=== PATIENT | male | born 1940 | race Asian ===

== ENCOUNTER 2017-10-22 18:14 | Inpatient (IN) | payer MEDICAID ==
[~2017-10-22] VITALS: Ht 172.7 cm; Wt 74.6 kg
--- NOTE | 2017-10-22 19:08 | Emergency Room Report ---
History of Present Illness General Chief Complaint: Dyspnea/Respdistress Source: EMS Present Illness HPI 77-year-old male, history of lung cancer, stage IV, DNR/DNI, as confirmed by both patient and his sister, presenting with shortness of breath. Has been short of breath for the last 2 days coming from long term. Also patient has edema bilateral extremities and hands all the time. Denies any current chest pain per EMS, pt hypoxic on NC at 85. up to 95 on NRB Allergies: Coded Allergies: ALCOHOL (Verified Allergy, Unknown, 10/22/17) Coffee (Verified Allergy, Unknown, 10/22/17) Patient History Past Medical History: see triage record Past Surgical History: none Pertinent Family History: none Reviewed Nursing Documentation: PMH: Agreed, PSxH: Agreed Nursing Documentation-PMH Hx Hypertension: Yes Hx COPD: Yes Hx Cancer: Yes - LUNG CA Review of Systems All Other Systems: negative except mentioned in HPI Physical Exam Vital Signs Date Time Temp Pulse Resp B/P (MAP) Pulse Ox O2 Delivery O2 Flow Rate FiO2 10/22/17 18:29 97.1 86 20 143/80 97 Non-Rebreather 15.0 97.2 Sp02 EP Interpretation: abnormal General Appearance: alert, GCS 15, severe distress Head: normocephalic, atraumatic Eyes: bilateral eye normal inspection, bilateral eye PERRL, bilateral eye EOMI ENT: normal ENT inspection, normal pharynx, normal voice, moist mucus membranes Neck: normal inspection, full range of motion, supple Respiratory: other - Decreased breath sounds right side of the lung, tachypnea , hypoxic Cardiovascular #1: regular rate, rhythm, edema Cardiovascular #2: 2+ radial (R), 2+ radial (L) Gastrointestinal: normal inspection, non tender, soft, non-distended, no guarding Genitourinary: no CVA tenderness Musculoskeletal: normal inspection, back normal, normal range of motion, non- tender Neurologic: normal inspection, alert, oriented x3, responsive, motor strength/ tone normal, sensory intact, normal gait, speech normal Psychiatric: normal inspection, judgement/insight normal, memory normal Skin: normal inspection, normal color, no rash, warm/dry, well hydrated, normal turgor Procedures Critical Care Time Critical Care Time 40 minutes of CC time 77-year-old male, DNR/DNI, lung cancer, presenting with shortness of breath VS: Hypoxic and tachypneic PLAN: IV access, labs, lactate, troponin, Blood/Urine Cx, Abx, IVF, BiPAP Anticipate admission to [facility] vs. [facility] CC time also includes review of labs, review of EMR, discussion with family and paperwork from SNF, d/w hospitalist CC could include dosing of pressors, additional Abx CC time does not include procedures Medical Decision Making Diagnostic Impression: Primary Impression: Respiratory distress Additional Impressions: Lung cancer HCAP (healthcare-associated pneumonia) ER Course 77-year-old male with shortness of breath, DNR/DNI DDX: ACS vs. CHF vs. pneumonia vs. influenza, a progression of lung cancer PE on differential however at this time there are other more likely diagnoses. Plan: IV access, obtain labs including troponin, EKG, CXR CONSIDER BIPAP ANTICIPATE ADMISSION ER course: Patient placed on BiPAP for respiratory distress leukocytosis - given broad spec abx Disposition: Patient requires admission to [facility] D/W hospitalist Dr Odell Please note that this Emergency Department Report was dictated using K[employer]ferport[employer] room inspector technology software, occasionally this can lead to erroneous entry secondary to interpretation by the dictation equipment. EKG Diagnostic Results* EP Interpretation: Yes Rate: normal Rhythm: NSR ST Segments: No acute changes ASA given to patient: No Rhythm Strip EP Interpretation: Yes Rate: 89 Rhythm: NSR, no PVCs, no ectopy Chest X-ray CXR: Ordered: Yes 1 view Indication: Chest pain EP interpretation: Yes Interpretation: Bilateral interstitial infiltrate Impression: Bilateral interstitial infiltrate Electronically signed by Brooks Montaño MD Laboratory Tests Test 10/22/17 19:05 White Blood Count 19.0 K/UL (4.8-10.8) H Red Blood Count 4.44 M/UL (4.70-6.10) L Hemoglobin 12.2 G/DL (14.2-18.0) L Hematocrit 39.2 % (42.0-52.0) L Mean Corpuscular Volume 88 FL (80-99) Mean Corpuscular Hemoglobin 27.4 PG (27.0-31.0) Mean Corpuscular Hemoglobin Concent 31.0 G/DL (32.0-36.0) L Red Cell Distribution Width 14.9 % (11.6-14.8) H Platelet Count 341 K/UL (150-450) Mean Platelet Volume 6.9 FL (6.5-10.1) Neutrophils (%) (Auto) % (45.0-75.0) Lymphocytes (%) (Auto) % (20.0-45.0) Monocytes (%) (Auto) % (1.0-10.0) Eosinophils (%) (Auto) % (0.0-3.0) Basophils (%) (Auto) % (0.0-2.0) Differential Total Cells Counted 100 Neutrophils % (Manual) 92 % (45-75) H Lymphocytes % (Manual) 3 % (20-45) L Monocytes % (Manual) 4 % (1-10) Eosinophils % (Manual) 0 % (0-3) Basophils % (Manual) 0 % (0-2) Band Neutrophils 1 % (0-8) Platelet Estimate Adequate Platelet Morphology Normal Hypochromasia 1+ Anisocytosis 1+ Sodium Level 145 MMOL/L (136-145) Potassium Level 2.4 MMOL/L (3.5-5.1) *L Chloride Level 91 MMOL/L (98-107) L Carbon Dioxide Level > 45 MMOL/L (21-32) *H Blood Urea Nitrogen 21 mg/dL (7-18) H Creatinine 0.8 MG/DL (0.55-1.30) Estimate Glomerular Filtration Rate mL/min (>60) Glucose Level 110 MG/DL (74-106) H Lactic Acid Level 1.10 mmol/L (0.66-2.22) Calcium Level 9.8 MG/DL (8.5-10.1) Total Bilirubin 0.5 MG/DL (0.2-1.0) Aspartate Amino Transferase (AST) 28 U/L (15-37) Alanine Aminotransferase (ALT) 30 U/L (12-78) Alkaline Phosphatase 64 U/L (46-116) Troponin I 0.022 ng/mL (0.000-0.056) Pro-B-Type Natriuretic Peptide 299 pg/mL (0-125) H Total Protein 6.8 G/DL (6.4-8.2) Albumin 2.6 G/DL (3.4-5.0) L Globulin 4.2 g/dL Albumin/Globulin Ratio 0.6 (1.0-2.7) L Microbiology Date/Time Source Procedure Growth Status 3/5/18 19:35 Nasal Nares Influenza Types A,B Antigen (TINO) - Final Complete Last Vital Signs Date Time Temp Pulse Resp B/P (MAP) Pulse Ox O2 Delivery O2 Flow Rate FiO2 10/22/17 18:29 97.1 86 20 143/80 97 Non-Rebreather 15.0 97.2 Disposition: ADMITTED INPATIENT Condition: Serious RetinBrooks oliveros M.D. Oct 22, 2017 19:08
[2017-10-22 19:26] LABS: HEMATOCRIT 39.2 % (42.0-52.0); HEMOGLOBIN 12.2 G/DL (14.2-18.0); MEAN CORPUSCULAR VOLUME 88 FL (80-99); PLATELET COUNT 341 K/UL (150-450); RED BLOOD COUNT 4.44 M/UL (4.70-6.10); RED CELL DISTRIBUTION WIDTH 14.9 % (11.6-14.8)
[2017-10-22 19:30] VITALS: BP 143/80
[2017-10-22] MEDS ORDERED: Cefepime 2gm ONE (19:43)
[2017-10-22] MEDS ORDERED: Morphine Sulfate 4mg/ml Inj IVP ONE (19:45)
[2017-10-22] MEDS ORDERED: Vancomycin 1 GM in NS 275 ML IVPB ONE (19:45)
[2017-10-22] MEDS ORDERED: Cefepime HCl 2 GM in NS 110 ML IV ONE (19:45)
[2017-10-22 20:09] LABS: ALANINE AMINOTRANSFERASE 30 U/L (12-78); ALBUMIN 2.6 G/DL (3.4-5.0); ALBUMIN/GLOBULIN RATIO 0.6 (1.0-2.7); ALKALINE PHOSPHATASE 64 U/L (46-116); ASPARTATE AMINO TRANSFERASE 28 U/L (15-37); BILIRUBIN,TOTAL 0.5 MG/DL (0.2-1.0); BLOOD UREA NITROGEN 21 mg/dL (7-18); CALCIUM 9.8 MG/DL (8.5-10.1); CHLORIDE 91 MMOL/L (98-107); CREATININE 0.8 MG/DL (0.55-1.30); SODIUM 145 MMOL/L (136-145)
[2017-10-22 20:10] LABS: POTASSIUM 2.4 MMOL/L (3.5-5.1)
[2017-10-22 20:12] LABS: CARBON DIOXIDE > 45 MMOL/L (21-32)
[2017-10-22] MEDS ORDERED: Mylanta II UD 30ml ORAL PRN (21:00)
[2017-10-22] MEDS ORDERED: Cefepime HCl 1 GM in D5W 55 ML IV SCH (21:00)
[2017-10-22] MEDS ORDERED: Albuterol/Ipratropium 3ml neb HHN PRN (21:00)
[2017-10-22] MEDS ORDERED: Nitroglycerin Subl 0.4mg tab SL PRN (21:00)
[2017-10-22] MEDS ORDERED: Miralax 17gm pkt ORAL PRN (21:00)
[2017-10-22] MEDS ORDERED: Promethazine/Codeine 5ml UD ORAL PRN (21:00)
[2017-10-22] MEDS ORDERED: ASPIRIN325 MG RECTAL (21:10)
[2017-10-22] MEDS ORDERED: DEXTROSE 40% IV (21:10)
[2017-10-22] MEDS ORDERED: BISACODYL5 MG RECTAL (21:10)
[2017-10-22] MEDS ORDERED: BREO ELLIPTA 11 EACH IH (21:10)
[2017-10-22] MEDS ORDERED: ASPIRIN81 MG ORAL (21:10)
[2017-10-22] MEDS ORDERED: ACID CONTROLLER20 MG ORAL (21:10)
[2017-10-22] MEDS ORDERED: ATORVASTATIN CA40 MG ORAL (21:10)
[2017-10-22] MEDS ORDERED: ACETYLCYST200 MG/1 M HHN (21:10)
[2017-10-22] MEDS ORDERED: FUROSEMIDE40 MG ORAL (21:10)
[2017-10-22] MEDS ORDERED: CARDIZEM30 M1 PO (21:10)
[2017-10-22] MEDS ORDERED: ACETAMINOPHEN325 M1 ORAL (21:10)
[2017-10-22] MEDS ORDERED: POLYETHYLENE GLY1 G1 ORAL (21:16)
[2017-10-22] MEDS ORDERED: GLUCAGON EMERGEN1 MG IJ (21:16)
[2017-10-22] MEDS ORDERED: HUMALOG100 UNIT/4 SUBQ (21:16)
[2017-10-22] MEDS ORDERED: IPRAT-ALBUT 0.5-3 ML IH (21:16)
[2017-10-22] MEDS ORDERED: LOSARTAN POTASS50 MG ORAL (21:16)
[2017-10-22] MEDS ORDERED: HEPARIN SO5000 UNIT2 SUBQ (21:16)
[2017-10-22] MEDS ORDERED: NORCO 10-325 T1 EACH ORAL (21:25)
[2017-10-22] MEDS ORDERED: PREDNISONE10 MG ORAL (21:25)
[2017-10-22] MEDS ORDERED: TEMAZEPAM7.5 MG ORAL (21:25)
[2017-10-22] MEDS ORDERED: SENNOSIDES-DOC1 EACH ORAL (21:25)
[2017-10-22 21:30] VITALS: BP 149/70
[2017-10-22] MEDS ORDERED: Vancomycin 1gm inj IVPB ONE (22:29)
[2017-10-22 22:55] VITALS: BP 145/67
[2017-10-22 23:06] LABS: APPEARANCE,URINE CLEAR; BILIRUBIN, URINE NEGATIVE (NEGATIVE); GLUCOSE, URINE (UA) NEGATIVE (NEGATIVE); KETONES,URINE 1+ (NEGATIVE); LEUKOCYTE ESTERASE ,URINE 1+ (NEGATIVE); NITRITE,URINE NEGATIVE (NEGATIVE); PH,URINE 6 (4.5-8.0); PROTEIN,URINE 2+ (NEGATIVE); UROBILINOGEN,URINE NORMAL MG/DL (0.0-1.0)
[2017-10-22 23:08] LABS: COLOR,URINE YELLOW
[2017-10-22 23:30] VITALS: BP 150/84
[2017-10-23] MEDS: Heparin 5000 units/ml inj SUBQ SCH ×3 (00:33→20:26)
[2017-10-23] MEDS ORDERED: TEMAZEPAM7.5 MG ORAL (01:53)
[2017-10-23] MEDS ORDERED: CARDIZEM30 M1 PO (01:53)
[2017-10-23] MEDS ORDERED: ASPIRIN300 MG RECTAL (01:53)
[2017-10-23 04:00] VITALS: BP 150/74
[2017-10-23 06:24] LABS: HEMOGLOBIN 11.4 G/DL (14.2-18.0); MEAN CORPUSCULAR VOLUME 89 FL (80-99); PLATELET COUNT 300 K/UL (150-450); RED BLOOD COUNT 4.04 M/UL (4.70-6.10); RED CELL DISTRIBUTION WIDTH 15.2 % (11.6-14.8); WHITE BLOOD COUNT 18.8 K/UL (4.8-10.8)
[2017-10-23 06:57] LABS: ALANINE AMINOTRANSFERASE 31 U/L (12-78); ALBUMIN 2.4 G/DL (3.4-5.0); ALBUMIN/GLOBULIN RATIO 0.7 (1.0-2.7); ALKALINE PHOSPHATASE 65 U/L (46-116); ASPARTATE AMINO TRANSFERASE 31 U/L (15-37); BILIRUBIN,TOTAL 0.6 MG/DL (0.2-1.0); BLOOD UREA NITROGEN 19 mg/dL (7-18); CALCIUM 9.4 MG/DL (8.5-10.1); CHLORIDE 96 MMOL/L (98-107); CREATININE 0.7 MG/DL (0.55-1.30); PHOSPHORUS 3.7 MG/DL (2.5-4.9); POTASSIUM 2.8 MMOL/L (3.5-5.1); SODIUM 147 MMOL/L (136-145)
[2017-10-23 07:01] LABS: CARBON DIOXIDE > 45 MMOL/L (21-32)
--- NOTE | 2017-10-23 07:24 | History and Physical ---
History of Present Illness General Date patient seen: Oct 23, 2017 Reason for Hospitalization: Dyspnea/Respdistress Present Illness HPI 77-year-old male, history of lung cancer, stage IV, DNR/DNI, residing in a [facility] presented to ER with shortness of breath. the last 2 days Also patient has edema bilateral extremities and hands all the time. Denies any current chest pain, pt was hypoxic was on NC at 85. up to 95 on NRB. Pt was in respiratory failure in ER and was put on BIPAP and transferred to [facility]. Allergies: Coded Allergies: ALCOHOL (Verified Allergy, Unknown, 10/22/17) Coffee (Verified Allergy, Unknown, 10/22/17) Medication History Scheduled Aspirin* (Aspirin*), 81 MG ORAL DAILY, (Reported) Atorvastatin Calcium* (Atorvastatin Calcium*), 40 MG ORAL BEDTIME, (Reported) Bisacodyl* (Dulcolax*), 10 MG RECTAL DAILY, (Reported) Famotidine (Acid Controller), 20 MG ORAL TWICE A DAY, (Reported) Fluticasone/Vilanterol (Breo Ellipta 100-25 Mcg INH), 1 EACH IH DAILY, (Reported ) Furosemide* (Lasix*), 40 MG ORAL DAILY, (Reported) Glucagon,Human Recombinant (Glucagon Emergency Kit), 1 MG IJ NEEDED, ( Reported) Heparin Sod (Porcine) (Heparin Sodium*), 5,000 UNITS SUBQ EVERY 8 HOURS, ( Reported) Ipratropium/Albuterol Sulfate (Iprat-Albut 0.5-3(2.5) Mg/3 Ml), 3 ML IH EVERY 2 HOURS, (Reported) Losartan Potassium* (Losartan Potassium*), 50 MG ORAL DAILY, (Reported) Polyethylene Glycol 3350 (Polyethylene Glycol 3350), 17 GM ORAL DAILY, (Reported ) Prednisone* (Prednisone*), 10 MG ORAL DAILY, (Reported) Sennosides-Docusate Sodium* (Sennosides-Docusate Sodium*), 1 TAB ORAL BID, ( Reported) Scheduled PRN Acetaminophen* (Acetaminophen 325MG Tablet*), 650 MG ORAL Q4H PRN for For Pain, (Reported) Acetylcysteine* (Acetylcysteine*), 200 MG HHN Q4HR PRN for For Cough, (Reported) Aspirin (Aspirin), 300 MG RECTAL DAILY PRN for For Pain, (Reported) Diltiazem Hcl* (Cardizem*), 30 MG PO QID PRN for For High Blood Pressure, ( Reported) Hydrocodone Bit/Acetaminophen 10-325* ([place] 10-325*), 1 TAB ORAL Q4H PRN for For Pain, (Reported) Temazepam (Temazepam*), 7.5 MG ORAL BEDTIME PRN for Insomnia, (Reported) Miscellaneous Medications Dextrose 40 % In Water (Dextrose 40%-Water Iv Soln), 12.5 GM IV, (Reported) Insulin Lispro (Humalog), 0 SUBQ, (Reported) Patient History Healthcare decision maker Resuscitation status Do Not Intubate Advanced Directive on File Yes Past Medical/Surgical History Past Medical/Surgical History: (1) Lung cancer Review of Systems All Other Systems: negative except mentioned in HPI Physical Exam General Appearance: cachetic Lines, tubes and drains: peripheral HEENT: normocephalic, atraumatic Neck: non-tender, normal alignment Respiratory/Chest: chest wall non-tender, lungs clear Breasts: no masses Cardiovascular/Chest: normal peripheral pulses, normal rate Abdomen: normal bowel sounds Genitourinary/Rectal: normal genital exam, normal rectal exam Extremities: normal range of motion, normal inspection, pitting - left arm Skin Exam: normal pigmentation Last 24 Hour Vital Signs Date Time Temp Pulse Resp B/P (MAP) Pulse Ox O2 Delivery O2 Flow Rate FiO2 10/23/17 04:35 89 16 100 Full Face 60 10/23/17 04:00 60 10/23/17 04:00 89 10/23/17 04:00 97.9 90 22 150/74 100 Bi-pap 60 97.9 10/23/17 03:20 75 16 100 Full Face 60 10/23/17 01:30 75 16 100 Full Face 60 10/23/17 00:00 100 10/22/17 23:30 79 18 100 Full Face 100 10/22/17 23:30 97.4 84 20 150/84 100 Bi-pap 100 97.4 10/22/17 23:20 97.1 82 17 145/67 100 Bi-pap 15.0 100 206.8 10/22/17 23:20 97.1 10/22/17 22:55 82 17 145/67 100 Bi-pap 100 3/5/18 21:30 84 22 149/70 100 Bi-pap 100 10/22/17 21:00 83 18 100 Full Face 100 10/22/17 19:52 97.1 10/22/17 19:30 81 18 Bi-pap 15.0 100 10/22/17 19:30 97.2 86 18 143/80 100 Non-Rebreather 15.0 100 97.2 10/22/17 19:17 81 18 Bi-pap 100 10/22/17 19:15 81 18 100 Full Face 100 10/22/17 18:29 97.1 86 20 143/80 97 Non-Rebreather 15.0 97.2 Intake and Output 10/22/17 10/23/17 19:00 07:00 Intake Total 485.0 ml Output Total 700 ml Balance -215.0 ml Intake Oral 0 ml IV Total 485.0 ml Output Urine Total 700 ml Laboratory Tests Test 10/22/17 19:05 10/22/17 20:14 10/22/17 22:50 10/23/17 05:20 White Blood Count 19.0 K/UL (4.8-10.8) H 18.8 K/UL (4.8-10.8) H Red Blood Count 4.44 M/UL (4.70-6.10) L 4.04 M/UL (4.70-6.10) L Hemoglobin 12.2 G/DL (14.2-18.0) L 11.4 G/DL (14.2-18.0) L Hematocrit 39.2 % (42.0-52.0) L 36.0 % (42.0-52.0) L Mean Corpuscular Volume 88 FL (80-99) 89 FL (80-99) Mean Corpuscular Hemoglobin 27.4 PG (27.0-31.0) 28.3 PG (27.0-31.0) Mean Corpuscular Hemoglobin Concent 31.0 G/DL (32.0-36.0) L 31.7 G/DL (32.0-36.0) L Red Cell Distribution Width 14.9 % (11.6-14.8) H 15.2 % (11.6-14.8) H Platelet Count 341 K/UL (150-450) 300 K/UL (150-450) Mean Platelet Volume 6.9 FL (6.5-10.1) 7.1 FL (6.5-10.1) Neutrophils (%) (Auto) % (45.0-75.0) % (45.0-75.0) Lymphocytes (%) (Auto) % (20.0-45.0) % (20.0-45.0) Monocytes (%) (Auto) % (1.0-10.0) % (1.0-10.0) Eosinophils (%) (Auto) % (0.0-3.0) % (0.0-3.0) Basophils (%) (Auto) % (0.0-2.0) % (0.0-2.0) Differential Total Cells Counted 100 Neutrophils % (Manual) 92 % (45-75) H Pending Lymphocytes % (Manual) 3 % (20-45) L Pending Monocytes % (Manual) 4 % (1-10) Eosinophils % (Manual) 0 % (0-3) Basophils % (Manual) 0 % (0-2) Band Neutrophils 1 % (0-8) Platelet Estimate Adequate Pending Platelet Morphology Normal Pending Hypochromasia 1+ Anisocytosis 1+ Sodium Level 145 MMOL/L (136-145) 147 MMOL/L (136-145) H Potassium Level 2.4 MMOL/L (3.5-5.1) *L 2.8 MMOL/L (3.5-5.1) L Chloride Level 91 MMOL/L (98-107) L 96 MMOL/L (98-107) L Carbon Dioxide Level > 45 MMOL/L (21-32) *H > 45 MMOL/L (21-32) *H Blood Urea Nitrogen 21 mg/dL (7-18) H 19 mg/dL (7-18) H Creatinine 0.8 MG/DL (0.55-1.30) 0.7 MG/DL (0.55-1.30) Estimat Glomerular Filtration Rate mL/min (>60) mL/min (>60) Glucose Level 110 MG/DL (74-106) H 93 MG/DL (74-106) Lactic Acid Level 1.10 mmol/L (0.66-2.22) Calcium Level 9.8 MG/DL (8.5-10.1) 9.4 MG/DL (8.5-10.1) Total Bilirubin 0.5 MG/DL (0.2-1.0) 0.6 MG/DL (0.2-1.0) Aspartate Amino Transf (AST/SGOT) 28 U/L (15-37) 31 U/L (15-37) Alanine Aminotransferase (ALT/SGPT) 30 U/L (12-78) 31 U/L (12-78) Alkaline Phosphatase 64 U/L (46-116) 65 U/L (46-116) Troponin I 0.022 ng/mL (0.000-0.056) Pro-B-Type Natriuretic Peptide 299 pg/mL (0-125) H 290 pg/mL (0-125) H Total Protein 6.8 G/DL (6.4-8.2) 5.8 G/DL (6.4-8.2) L Albumin 2.6 G/DL (3.4-5.0) L 2.4 G/DL (3.4-5.0) L Globulin 4.2 g/dL 3.4 g/dL Albumin/Globulin Ratio 0.6 (1.0-2.7) L 0.7 (1.0-2.7) L Arterial Blood pH 7.371 (7.350-7.450) Arterial Blood Partial Pressure CO2 100.9 mmHg (35.0-45.0) *H Arterial Blood Partial Pressure O2 283.9 mmHg (75.0-100.0) H Arterial Blood HCO3 57.1 mmol/L (22.0-26.0) H Arterial Blood Oxygen Saturation 99.2 % (92.0-98.0) H Arterial Blood Base Excess 26.5 Kyler Test Positive Urine Color Yellow Urine Appearance Clear Urine pH 6 (4.5-8.0) Urine Specific [place] 1.015 (1.005-1.035) Urine Protein 2+ (NEGATIVE) H Urine Glucose (UA) Negative (NEGATIVE) Urine Ketones 1+ (NEGATIVE) H Urine Occult Blood Negative (NEGATIVE) Urine Nitrite Negative (NEGATIVE) Urine Bilirubin Negative (NEGATIVE) Urine Urobilinogen Normal MG/DL (0.0-1.0) Urine Leukocyte Esterase 1+ (NEGATIVE) H Urine RBC 0-2 /HPF (0 - 0) H Urine WBC 2-4 /HPF (0 - 0) Urine Squamous Epithelial Cells None /LPF (NONE/OCC) Urine Amorphous Sediment Few /LPF (NONE) H Urine Bacteria Few /HPF (NONE) Phosphorus Level 3.7 MG/DL (2.5-4.9) Microbiology Date/Time Source Procedure Growth Status 10/22/17 19:35 Nasal Nares Influenza Types A,B Antigen (TINO) - Final Complete Height (Feet): 5 Height (Inches): 8.00 Weight (Pounds): 150 Medications Current Medications Medications (Trade) Dose Ordered Sig/Robi Route PRN Reason Start Time Stop Time Status Last Admin Dose Admin Acetaminophen (Tylenol) 650 mg Q4H PRN ORAL fever 10/22/17 21:00 11/21/17 20:59 Al Hydroxide/Mg Hydroxide (Mylanta II) 30 ml Q6H PRN ORAL dyspepsia 10/22/17 21:00 11/21/17 20:59 Albuterol/ Ipratropium (Albuterol/ Ipratropium) 3 ml EVERY 4 HOURS PRN HHN Shortness of Breath 10/22/17 21:00 10/27/17 20:59 Cefepime HCl 1 gm/ Dextrose 55 ml @ 110 mls/hr Q12H IV 10/23/17 08:00 10/30/17 07:59 Dextrose (Dextrose 50%) STAT PRN IV Hypoglycemia 10/23/17 07:00 11/22/17 06:59 Heparin Sodium (Porcine) (Heparin 5000 units/ml) 5,000 units EVERY 12 HOURS SUBQ 10/22/17 21:00 11/21/17 20:59 10/23/17 00:33 Insulin Aspart (NovoLOG) BEFORE MEALS AND HS SUBQ 10/23/17 11:30 11/22/17 11:29 Nitroglycerin (Ntg) 0.4 mg Q5MINS PRN SL Prn Chest Pain 10/22/17 21:00 11/21/17 20:59 Ondansetron HCl (Zofran) 4 mg Q6H PRN IVP Nausea & Vomiting 10/22/17 21:00 11/21/17 20:59 Polyethylene Glycol (Miralax) 17 gm DAILYPRN PRN ORAL Constipation 10/22/17 21:00 11/21/17 20:59 Promethazine HCl/ Codeine (Phenergan with Codeine) 5 ml Q4H PRN ORAL For Cough 10/22/17 21:00 11/21/17 20:59 Temazepam (Restoril) 15 mg HSPRN PRN ORAL Insomnia 10/22/17 21:00 10/29/17 20:59 Vancomycin HCl (Vanco rx to dose) 1 ea DAILY PRN MISC Per rx protocol 10/22/17 21:00 11/21/17 20:59 Vancomycin/Sodium Chloride 250 ml @ 166.667 mls/hr Q12H IVPB 10/23/17 10:30 10/28/17 10:29 Assessment/Plan Problem List: (1) Respiratory distress ICD Codes: R06.03 - Acute respiratory distress SNOMED: 698298232 (2) Pancoast syndrome ICD Codes: C34.10 - Malignant neoplasm of upper lobe, unspecified bronchus or lung SNOMED: 187526388 (3) HCAP (healthcare-associated pneumonia) ICD Codes: J18.9 - Pneumonia, unspecified organism SNOMED: 526505378 (4) Lung cancer ICD Codes: C34.90 - Malignant neoplasm of unspecified part of unspecified bronchus or lung SNOMED: 999935253 Assessment/Plan respiratory treatment IV abx trial of iv steroids chec sputum oncology evaluation. CRISTELA KEVIN Oct 23, 2017 07:23
[2017-10-23 08:00] VITALS: BP 146/85
[2017-10-23] MEDS ORDERED: dilTIAZem HCl 30mg tab ORAL PRN (08:30)
[2017-10-23] MEDS: Cefepime HCl 1 GM in D5W 55 ML IV SCH ×2 (08:45→20:23)
[2017-10-23] MEDS: Losartan 50mg tab ORAL SCH ×2 (08:56→09:00)
[2017-10-23] MEDS: Furosemide 40mg tab ORAL SCH ×2 (08:56→09:00)
[2017-10-23] MEDS: Vancomycin 750mg/NS 250ml IVPB SCH ×2 (10:22→21:30)
--- NOTE | 2017-10-23 10:38 | Diagnostic Imaging Report ---
Indication: Chest pain Comparison: None A single view chest radiograph was obtained. Findings: Patchy interstitial opacities are present within the lungs bilaterally. There is suggestion of basilar atelectasis on the left. Heart size is within normal limits accounting for low lung volumes. Surgical clips demonstrated in the upper abdomen. Bones are osteopenic. IMPRESSION: Abnormal interstitial opacities bilaterally. Consider interstitial pneumonitis versus edema. Please correlate clinically.
--- NOTE | 2017-10-23 11:21 | Diagnostic Imaging Report ---
Indication: Dyspnea Comparison: 10/22/2017 A single view chest radiograph was obtained. Findings: There is no change. Patchy interstitial densities demonstrated throughout the lungs bilaterally. Findings may be inflammatory on the basis of interstitial edema. Please correlate clinically. There is evidence of chronic lung disease with hyperlucency noted in the upper lung olivera suggestive of emphysema/COPD. There may be a right pleural effusion with blunting of the costophrenic angle and obscuring of the right hemidiaphragm. Heart is enlarged. IMPRESSION: No significant slubber frame changer the last day.
[2017-10-23] MEDS: NovoLOG Insulin Flexpen SUBQ SCH ×3 (11:30→20:30)
--- NOTE | 2017-10-23 11:31 | Consultation ---
Consult Note Consult Note ID DIC # [id number] ZACHARY WETZEL M.D. Oct 23, 2017 11:31
[2017-10-23 12:00] VITALS: BP 136/72
[2017-10-23] MEDS ORDERED: Potassium Chloride 40 MEQ in Sodium Chloride 500ML 550 ML IVPB ONE ×2 (14:00→16:30)
[2017-10-23] MEDS: Azithromycin 500 MG in D5W 275 ML IV SCH (14:12)
[2017-10-23 16:00] VITALS: BP 130/64
--- NOTE | 2017-10-23 16:27 | Cardiology Report ---
APPROVED REPORT EKG Measurement Heart [id number] NC 140P39 [id number] Normal sinus rhythm Nonspecific ST and T wave abnormality Abnormal ECG
--- NOTE | 2017-10-23 18:15 | Consultation ---
DATE OF CONSULTATION: 10/23/2017 INFECTIOUS DISEASE CONSULTATION CONSULTING PHYSICIAN: Renzo Perez M.D. REQUESTING PHYSICIAN: Varun Odell M.D. REASON FOR CONSULTATION: Evaluation of the patient for pneumonia, antibiotic management. HISTORY OF PRESENT ILLNESS: The patient is a 77-year-old male with multiple medical problems, who [facility] due to shortness of breath. The patient has been admitted with impression of pneumonia. Infectious Disease consultation has been requested for further evaluation of the patient's antibiotic management. PAST MEDICAL HISTORY: Significant for, 1. Stage IV lung cancer. 2. DNR/DNI. 3. Atrial fibrillation. 4. Hyperlipidemia. 5. Hypertension. 6. History of COPD. 7. Diabetes. MEDICATIONS: The patient is on IV vancomycin and cefepime. ALLERGIES: No history of allergies to antibiotics. FAMILY HISTORY: Not contributing. REVIEW OF SYSTEMS: HEENT: No recent change of vision or hearing. PULMONARY: Cough and shortness of breath. CARDIOVASCULAR: No chest pain or palpitation. GASTROINTESTINAL/ABDOMEN: No nausea or vomiting. GENITOURINARY: No dysuria. MUSCULOSKELETAL: The patient has left upper extremity weakness. NEUROLOGIC: Awake and alert. LABORATORY AND DIAGNOSTIC DATA: White blood cells 18, hemoglobin 11 and platelets 300. UA is unremarkable. BUN 19 and creatinine 0.7. Lactic acid is normal. ALT, AST, and alkaline phosphatase unremarkable. Influenza A/B screen negative. Chest x-ray, patchy interstitial densities demonstrated the lung. ASSESSMENT: The patient is a 77-year-old male with, 1. Possible postobstructive pneumonia. 2. Leukocytosis. 3. Sepsis. 4. Respiratory failure, on BiPAP. 5. Rule out bacteremia. PLAN: 1. We will continue the patient on vancomycin and cefepime. We will add Zithromax for atypical coverage. 2. Monitor CBC. 3. Monitor BMP. 4. Monitor chest x-ray. 5. Monitor cultures (blood, sputum). 6. Based on the patient's current labs, we will do further recommendations. Thank you, Dr. Odell, for allowing me to participate in the care of this patient. I will follow the patient with you during this hospitalization. Renzo Perez M.D. DR: MATEO JOB#: [id number] CC:
[2017-10-23 20:00] VITALS: BP 125/79
[2017-10-24] VITALS: BP 128/74
[2017-10-24 04:00] VITALS: BP 114/70
--- NOTE | 2017-10-24 05:30 | Consultation ---
DATE OF CONSULTATION: 10/23/2017 HEMATOLOGY/ONCOLOGY CONSULTATION CONSULTING PHYSICIAN: Hernandez Gibbs M.D. REQUESTING PHYSICIAN: Varun Odell M.D. REASON FOR CONSULTATION: Evaluation of lung cancer, on immunotherapy. IDENTIFICATION DATA: Dear Dr. Odell, The patient is a pleasant 77-year-old male with past medical history significant for lung cancer, this is his first time presenting here at [facility]. The patient wants to discuss in regard to immunotherapy. Hematology Service consulted. The patient is DNR, DNI, and did have a tissue biopsy in front of me to further elucidate what type of cancer he actually has. He presents to the ER with shortness of breath at all times. Denies any chest pain. No fevers, chills, or night sweats. Respiratory saw him in the ER, placed on BiPAP, transferred to the [facility], is on nasal cannula 85% to 95%. Hematology Service was consulted. PAST MEDICAL HISTORY: As noted above. ALLERGIES: Alcohol and caffeine. MEDICATIONS: Aspirin, . REVIEW OF SYSTEMS: Shortness of breath noted.CONSTITUTIONAL: No fevers or chills. SKIN: No rashes, bumps, or itching. HEENT: No headache, hearing or vision changes. BREASTS: No lumps, pain, or discharge. PULMONARY: No cough, sputum, or shortness of breath. GASTROINTESTINAL: No nausea, vomiting, or diarrhea. GENITOURINARY: No dysuria, frequency, or urgency. MUSCULOSKELETAL: No joint swelling, muscle pain, or trauma. PHYSICAL EXAMINATION: VITAL SIGNS: Reviewed. GENERAL: No acute distress. PULMONARY: Decreased breath sounds. CARDIOVASCULAR: Regular rate. No S3 or S4. ABDOMEN: Soft, nontender, and nondistended. EXTREMITIES: No cyanosis, swelling, or edema. LABORATORY DATA: WBC is 18.8, hemoglobin 11.4, hematocrit 36, and platelet count 300,000. BUN 19 and creatinine 0.7. ASSESSMENT AND RECOMMENDATIONS: 1. Stage IV lung cancer, unknown subtype. Difficult to evaluate in regard to whether or not the patient will benefit from immunotherapy. In order to do an evaluation of whether benefits are noticed with immunotherapy, first the patient will need to obtain tissue diagnosis in addition to PD, PD-L, PD-L1 staining of the tissue; approximately 10 to 20% of the patients can benefit from immunotherapy if they have a good performance status, if they have a decent performance status and some can even have long-term remission. Again, it is unknown at this time what type of tumor he actually has. We need to do further diagnosis. 2. Anemia, likely secondary to chronic disease. Closely monitor. 3. Leukocytosis, likely secondary to reactive process. Continue steroids. 4. Decreased hemoglobin and hematocrit, rule out gastrointestinal bleed. 5. Protein-calorie malnutrition, failure to thrive. I appreciate the consultation. Hernandez Gibbs M.D. DR: SEBASTIAN JOB#: [id number] CC:
[2017-10-24] MEDS: NovoLOG Insulin Flexpen SUBQ SCH ×4 (05:51→20:09)
[2017-10-24 07:01] LABS: HEMATOCRIT 37.7 % (42.0-52.0); HEMOGLOBIN 11.6 G/DL (14.2-18.0); MEAN CORPUSCULAR VOLUME 92 FL (80-99); PLATELET COUNT 314 K/UL (150-450); RED BLOOD COUNT 4.12 M/UL (4.70-6.10); RED CELL DISTRIBUTION WIDTH 15.7 % (11.6-14.8); WHITE BLOOD COUNT 21.3 K/UL (4.8-10.8)
--- NOTE | 2017-10-24 07:19 | Pulmonolgy Critical Care Note ---
Critical Care - Asmt/Plan Problems: (1) Pancoast syndrome (2) Lung cancer (3) Respiratory distress (4) HCAP (healthcare-associated pneumonia) Respiratory: monitor respiratory rate, adjust FIO2, CXR Cardiac: continue to monitor HR/BP Renal: F/U I&O Infectious Disease: check cultures, continue antibiotics Gastrointestinal: continue feedings/current rate Endocrine: monitor blood sugar, check HgA1C, continue sliding scale insulin Hematologic: transfuse if hgb<8.5 Neurologic: PRN Morphine, keep patient comfortable Affect: PRN ativan Prophylaxis: Protonix Disposition: keep in ICU Time Spent (Minutes): 30 Notes Reviewed: pond sawyer, cardio, renal Discussed with: nurses, consultants, mental health case managerbody care manager - Objective Last 24 Hour Vital Signs Date Time Temp Pulse Resp B/P (MAP) Pulse Ox O2 Delivery O2 Flow Rate FiO2 10/24/17 05:08 103 26 91 Full Face 100 10/24/17 04:00 107 10/24/17 04:00 97.0 100 17 114/70 92 Bi-pap 60 97.0 10/24/17 04:00 60 10/24/17 03:02 110 28 90 Full Face 100 10/24/17 02:26 118 10/24/17 01:21 102 24 92 Full Face 100 10/24/17 00:00 97.5 115 18 128/74 95 Bi-pap 60 97.5 10/24/17 00:00 60 10/23/17 22:50 110 22 90 Full Face 100 10/23/17 22:05 70 10/23/17 20:53 105 26 96 Full Face 60 10/23/17 20:00 98.1 111 20 125/79 95 Bi-pap 60 98.1 10/23/17 20:00 60 10/23/17 20:00 107 10/23/17 19:02 106 22 95 Full Face 60 10/23/17 16:40 111 21 96 Full Face 60 10/23/17 16:00 60 10/23/17 16:00 98.4 112 24 130/64 97 Bi-pap 60 98.4 10/23/17 15:45 111 10/23/17 15:21 114 32 97 Full Face 60 10/23/17 12:58 108 20 98 Full Face 60 10/23/17 12:00 60 3/6/18 12:00 97.0 111 20 136/72 96 Bi-pap 60 97.0 10/23/17 11:52 114 10/23/17 11:21 112 22 94 Full Face 60 10/23/17 09:22 98 17 97 Full Face 60 10/23/17 09:00 150/74 10/23/17 08:00 97.0 100 24 146/85 100 Bi-pap 60 97.0 10/23/17 08:00 102 10/23/17 08:00 60 10/23/17 07:29 93 16 100 Full Face 60 Status: sedated Condition: critical HEENT: atraumatic Neck: full ROM Lungs: clear Heart: regular Abdomen: soft, non-tender, feeding tube Micro: Microbiology Date/Time Source Procedure Growth Status 10/22/17 19:15 Blood Blood Culture - Preliminary NO GROWTH AFTER 24 HOURS Resulted 10/22/17 19:05 Blood Blood Culture - Preliminary NO GROWTH AFTER 24 HOURS Resulted 10/22/17 19:35 Nasal Nares Influenza Types A,B Antigen (TINO) - Final Complete Accucheck: 123 Critical Care - Subjective ROS Limited/Unobtainable: Yes Interval Events: still on bipap Condition: critical, grave EKG Rhythm: Sinus Rhythm FI02: 100 Sputum Amount: None I&O: Intake and Output 10/23/17 10/24/17 19:00 07:00 Intake Total 1205.000 ml 388.2 ml Output Total 2000 ml 700 ml Balance -795.000 ml -311.8 ml IV Total 1205.000 ml 388.2 ml Output Urine Total 2000 ml 700 ml CXR: no change Labs: Laboratory Tests Test 10/24/17 05:00 White Blood Count 21.3 K/UL (4.8-10.8) H Red Blood Count 4.12 M/UL (4.70-6.10) L Hemoglobin 11.6 G/DL (14.2-18.0) L Hematocrit 37.7 % (42.0-52.0) L Mean Corpuscular Volume 92 FL (80-99) Mean Corpuscular Hemoglobin 28.0 PG (27.0-31.0) Mean Corpuscular Hemoglobin Concent 30.6 G/DL (32.0-36.0) L Red Cell Distribution Width 15.7 % (11.6-14.8) H Platelet Count 314 K/UL (150-450) Mean Platelet Volume 7.3 FL (6.5-10.1) Neutrophils (%) (Auto) % (45.0-75.0) Lymphocytes (%) (Auto) % (20.0-45.0) Monocytes (%) (Auto) % (1.0-10.0) Eosinophils (%) (Auto) % (0.0-3.0) Basophils (%) (Auto) % (0.0-2.0) Neutrophils % (Manual) Pending Lymphocytes % (Manual) Pending Platelet Estimate Pending Platelet Morphology Pending Sodium Level Pending Potassium Level Pending Chloride Level Pending Carbon Dioxide Level Pending Blood Urea Nitrogen Pending Creatinine Pending Estimat Glomerular Filtration Rate Pending Glucose Level Pending Calcium Level Pending Total Bilirubin Pending Aspartate Amino Transf (AST/SGOT) Pending Alanine Aminotransferase (ALT/SGPT) Pending Alkaline Phosphatase Pending Pro-B-Type Natriuretic Peptide Pending Total Protein Pending Albumin Pending Globulin Pending CRISTELA KEVIN Oct 24, 2017 07:19
[2017-10-24 07:30] LABS: ALANINE AMINOTRANSFERASE 31 U/L (12-78); ALBUMIN 2.2 G/DL (3.4-5.0); ALBUMIN/GLOBULIN RATIO 0.5 (1.0-2.7); ALKALINE PHOSPHATASE 72 U/L (46-116); ASPARTATE AMINO TRANSFERASE 32 U/L (15-37); BILIRUBIN,TOTAL 0.6 MG/DL (0.2-1.0); BLOOD UREA NITROGEN 25 mg/dL (7-18); CALCIUM 9.2 MG/DL (8.5-10.1); CARBON DIOXIDE > 45 MMOL/L (21-32); CHLORIDE 99 MMOL/L (98-107); SODIUM 151 MMOL/L (136-145)
[2017-10-24 08:00] VITALS: BP 110/51
[2017-10-24] MEDS: Cefepime HCl 1 GM in D5W 55 ML IV SCH ×2 (08:50→20:05)
[2017-10-24] MEDS: Losartan 50mg tab ORAL SCH (08:50)
[2017-10-24] MEDS: Heparin 5000 units/ml inj SUBQ SCH ×2 (08:51→20:10)
[2017-10-24] MEDS: Vancomycin 750mg/NS 250ml IVPB SCH ×3 (10:07→21:48)
[2017-10-24] MEDS ORDERED: Potassium Chloride 40 MEQ in Sodium Chloride 500ML 550 ML IVPB ONE (10:30)
--- NOTE | 2017-10-24 11:08 | Diagnostic Imaging Report ---
Indication: Dyspnea Comparison: 10/23/2017 A single view chest radiograph was obtained. Findings: Patchy mixed interstitial alveolar opacities are fairly extensive and demonstrated bilaterally. Findings are unchanged and may be due to pulmonary edema in the setting of chronic lung disease and/or pneumonia. The heart is enlarged. Bilateral pleural effusions are present. IMPRESSION: Mixed interstitial alveolar disease unchanged. Bilateral pleural effusions
[2017-10-24 12:00] VITALS: BP 101/40
[2017-10-24] MEDS: Azithromycin 500 MG in D5W 275 ML IV SCH (13:31)
--- NOTE | 2017-10-24 15:56 | Infectious Diseases Prog Note ---
Assessment/Plan Assessment/Plan ASSESSMENT: The patient is a 77-year-old male with, Possible postobstructive pneumonia Influenza A/B screen negative Chest x-ray, patchy interstitial densities Leukocytosis increases Sepsis Rule out bacteremia Respiratory failure, Stage IV lung cancer. DNR/DNI. Atrial fibrillation. Hyperlipidemia. Hypertension. History of COPD. Diabetes. PLAN: cont pton on vancomycin and cefepime d# 2/ 10 and Zithromax d# 2 / 5-7 Monitor CBC Monitor BMP. Monitor chest x-ray. Monitor cultures (blood, sputum) Cont BiPAP Subjective Constitutional: Denies: no symptoms, fever, chills, fatigue, anorexia, drenching sweats, other Allergies: Coded Allergies: ALCOHOL (Verified Allergy, Unknown, 10/22/17) Coffee (Verified Allergy, Unknown, 10/22/17) Objective Vital Signs Last 24 Hour Vital Signs Date Time Temp Pulse Resp B/P (MAP) Pulse Ox O2 Delivery O2 Flow Rate FiO2 10/24/17 15:45 101 32 97 Full Face 100 10/24/17 13:59 110 26 100 Full Face 100 10/24/17 12:00 111 10/24/17 12:00 98.1 111 40 101/40 95 Bi-pap 100 98.1 10/24/17 12:00 100 10/24/17 10:37 111 32 98 Full Face 100 10/24/17 10:00 100 10/24/17 09:25 107 29 95 Full Face 100 10/24/17 08:50 110/51 10/24/17 08:45 106 10/24/17 08:00 100 10/24/17 08:00 97.7 104 20 110/51 93 Bi-pap 100 97.7 10/24/17 07:25 104 24 94 Full Face 100 10/24/17 05:08 103 26 91 Full Face 100 10/24/17 04:00 107 10/24/17 04:00 97.0 100 17 114/70 92 Bi-pap 60 97.0 10/24/17 04:00 60 10/24/17 03:02 110 28 90 Full Face 100 10/24/17 02:26 118 10/24/17 01:21 102 24 92 Full Face 100 10/24/17 00:00 97.5 115 18 128/74 95 Bi-pap 60 97.5 10/24/17 00:00 60 10/23/17 22:50 110 22 90 Full Face 100 10/23/17 22:05 70 10/23/17 20:53 105 26 96 Full Face 60 10/23/17 20:00 98.1 111 20 125/79 95 Bi-pap 60 98.1 10/23/17 20:00 60 10/23/17 20:00 107 10/23/17 19:02 106 22 95 Full Face 60 10/23/17 16:40 111 21 96 Full Face 60 10/23/17 16:00 60 10/23/17 16:00 98.4 112 24 130/64 97 Bi-pap 60 98.4 Height (Feet): 5 Height (Inches): 8.00 Weight (Pounds): 164 HEENT: anicteric Respiratory/Chest: normal breath sounds Cardiovascular: normal rate Abdomen: no organomegaly Microbiology Date/Time Source Procedure Growth Status 10/22/17 19:15 Blood Blood Culture - Preliminary NO GROWTH AFTER 24 HOURS Resulted 10/22/17 19:05 Blood Blood Culture - Preliminary NO GROWTH AFTER 24 HOURS Resulted 10/22/17 19:35 Nasal Nares Influenza Types A,B Antigen (TINO) - Final Complete Laboratory Tests Test 10/24/17 05:00 10/24/17 08:07 10/24/17 10:10 White Blood Count 21.3 K/UL (4.8-10.8) H Red Blood Count 4.12 M/UL (4.70-6.10) L Hemoglobin 11.6 G/DL (14.2-18.0) L Hematocrit 37.7 % (42.0-52.0) L Mean Corpuscular Volume 92 FL (80-99) Mean Corpuscular Hemoglobin 28.0 PG (27.0-31.0) Mean Corpuscular Hemoglobin Concent 30.6 G/DL (32.0-36.0) L Red Cell Distribution Width 15.7 % (11.6-14.8) H Platelet Count 314 K/UL (150-450) Mean Platelet Volume 7.3 FL (6.5-10.1) Neutrophils (%) (Auto) % (45.0-75.0) Lymphocytes (%) (Auto) % (20.0-45.0) Monocytes (%) (Auto) % (1.0-10.0) Eosinophils (%) (Auto) % (0.0-3.0) Basophils (%) (Auto) % (0.0-2.0) Differential Total Cells Counted 100 Neutrophils % (Manual) 90 % (45-75) H Lymphocytes % (Manual) 1 % (20-45) L Monocytes % (Manual) 9 % (1-10) Eosinophils % (Manual) 0 % (0-3) Basophils % (Manual) 0 % (0-2) Band Neutrophils 0 % (0-8) Platelet Estimate Adequate Platelet Morphology Normal Hypochromasia 1+ Anisocytosis 1+ Sodium Level 151 MMOL/L (136-145) H Potassium Level 3.0 MMOL/L (3.5-5.1) L Chloride Level 99 MMOL/L (98-107) Carbon Dioxide Level > 45 MMOL/L (21-32) *H Blood Urea Nitrogen 25 mg/dL (7-18) H Creatinine 1.0 MG/DL (0.55-1.30) Estimat Glomerular Filtration Rate mL/min (>60) Glucose Level 120 MG/DL (74-106) H Calcium Level 9.2 MG/DL (8.5-10.1) Total Bilirubin 0.6 MG/DL (0.2-1.0) Aspartate Amino Transf (AST/SGOT) 32 U/L (15-37) Alanine Aminotransferase (ALT/SGPT) 31 U/L (12-78) Alkaline Phosphatase 72 U/L (46-116) Pro-B-Type Natriuretic Peptide 621 pg/mL (0-125) H Total Protein 6.6 G/DL (6.4-8.2) Albumin 2.2 G/DL (3.4-5.0) L Globulin 4.4 g/dL Albumin/Globulin Ratio 0.5 (1.0-2.7) L Arterial Blood pH 7.429 (7.350-7.450) Arterial Blood Partial Pressure CO2 88.1 mmHg (35.0-45.0) *H Arterial Blood Partial Pressure O2 128.9 mmHg (75.0-100.0) H Arterial Blood HCO3 57.0 mmol/L (22.0-26.0) H Arterial Blood Oxygen Saturation 98.7 % (92.0-98.0) H Arterial Blood Base Excess 27.6 Kyler Test Positive Vancomycin Level Trough 12.0 ug/mL (5.0-12.0) Current Medications Medications (Trade) Dose Ordered Sig/Robi Route PRN Reason Start Time Stop Time Status Last Admin Dose Admin Acetaminophen (Tylenol) 650 mg Q4H PRN ORAL fever 10/22/17 21:00 11/21/17 20:59 Al Hydroxide/Mg Hydroxide (Mylanta II) 30 ml Q6H PRN ORAL dyspepsia 10/22/17 21:00 11/21/17 20:59 Albuterol/ Ipratropium (Albuterol/ Ipratropium) 3 ml EVERY 4 HOURS PRN HHN Shortness of Breath 10/22/17 21:00 10/27/17 20:59 Azithromycin 500 mg/Dextrose 275 ml @ 275 mls/hr Q24HRS IV 10/23/17 13:00 10/29/17 13:59 10/24/17 13:31 Cefepime HCl 1 gm/ Dextrose 55 ml @ 110 mls/hr Q12H IV 10/23/17 08:00 10/30/17 07:59 10/24/17 08:50 Dextrose (Dextrose 50%) STAT PRN IV Hypoglycemia 10/23/17 07:00 11/22/17 06:59 Diltiazem HCl (Cardizem) 30 mg Q6H PRN ORAL SBP > 160mmHg 10/23/17 08:30 11/22/17 08:29 Furosemide (Lasix) 40 mg DAILY IV 10/23/17 10:15 11/22/17 10:14 10/24/17 08:51 Heparin Sodium (Porcine) (Heparin 5000 units/ml) 5,000 units EVERY 12 HOURS SUBQ 10/22/17 21:00 11/21/17 20:59 10/24/17 08:51 Hydralazine HCl (Apresoline) 25 mg Q6H PRN IV SBP > 160mmHg 10/23/17 10:45 11/22/17 10:44 Insulin Aspart (NovoLOG) BEFORE MEALS AND HS SUBQ 10/23/17 11:30 11/22/17 11:29 10/24/17 11:39 Losartan Potassium (Cozaar) 50 mg DAILY ORAL 10/23/17 09:00 11/22/17 08:59 Nitroglycerin (Ntg) 0.4 mg Q5MINS PRN SL Prn Chest Pain 10/22/17 21:00 11/21/17 20:59 Ondansetron HCl (Zofran) 4 mg Q6H PRN IVP Nausea & Vomiting 10/22/17 21:00 11/21/17 20:59 Polyethylene Glycol (Miralax) 17 gm DAILYPRN PRN ORAL Constipation 10/22/17 21:00 11/21/17 20:59 Promethazine HCl/ Codeine (Phenergan with Codeine) 5 ml Q4H PRN ORAL For Cough 10/22/17 21:00 11/21/17 20:59 Temazepam (Restoril) 15 mg HSPRN PRN ORAL Insomnia 10/22/17 21:00 10/29/17 20:59 10/23/17 20:30 Vancomycin HCl (Vanco rx to dose) 1 ea DAILY PRN MISC Per rx protocol 10/22/17 21:00 11/21/17 20:59 Vancomycin/Sodium Chloride 250 ml @ 166.667 mls/hr Q12H IVPB 10/23/17 10:30 10/28/17 10:29 10/24/17 12:13 ZACHARY WETZEL M.D. Oct 24, 2017 15:56
[2017-10-24 16:00] VITALS: BP 106/53
--- NOTE | 2017-10-24 16:05 | Wound Care Consultation ---
Wound Assessment Wound Assessment #1: Wound Number: 1 Wound Present on Admission: Yes New Wound: No Status Change of Wound: No Wound Location Body Site Modif: right Wound Location Body Site: ischial tuberosity Wound Type: pressure ulcer Mike Test: Does not Mike Pressure Ulcer Stage: III Wound Thickness: Full Thickness Wound Length: 3.0 Wound Width: 3.0 Wound Depth: 0.3 Percent of Wound [place]/Red: 100 Percent of Wound Purple/Maroon: 100 - 8.0cmx3.0cm to surrouding skin Other Colors Identified: surrounding tissue deep maroon in color at risk for further skin breakdown Wound Drainage Description: Serosanguineous Wound Drainage Amount: Moderate Wound Drainage Odor: None/Absent Tissue Surrounding Wound: Macerated Wound General Appearance: Reddened, Draining Wound Assessment #2: Wound Number: 2 Wound Present on Admission: Yes New Wound: No Status Change of Wound: No Wound Location Body Site Modif: left Wound Location Body Site: ischial tuberosity Wound Type: pressure ulcer Mike Test: Does not Mike Pressure Ulcer Stage: Deep Tissue Injury Wound Thickness: Full Thickness Wound Length: 3.0 Wound Width: 3.0 Wound Depth: utd Percent of Wound Purple/Maroon: 100 Wound Drainage Amount: None Wound Drainage Odor: None/Absent Tissue Surrounding Wound: Intact Wound General Appearance: Reddened - maroon Wound Assessment #3: Wound Number: 3 Wound Present on Admission: Yes New Wound: No Status Change of Wound: No Wound Location Body Site Modif: mid Wound Location Body Site: sacral Wound Type: pressure ulcer Mike Test: Does not Mike Pressure Ulcer Stage: Deep Tissue Injury - suspected Wound Thickness: Full Thickness Wound Length: 3.0 Wound Width: 3.0 Wound Depth: utd Percent of Wound [place]/Red: 100 - deep red Wound Drainage Amount: None Wound Drainage Odor: None/Absent Tissue Surrounding Wound: Intact Wound General Appearance: Reddened Wound Assessment #4: Wound Number: 4 Wound Present on Admission: Yes New Wound: No Status Change of Wound: No Wound Location Body Site Modif: left Wound Location Body Site: foot - medial foot scattered deep reddend color with thick dry callus like skin Wound Type: other - medial foot scattered deep reddend color with thick dry callus like skin Mike Test: Does not Mike Percent of Wound [place]/Red: 100 - deep red Wound Drainage Amount: None Wound Drainage Odor: None/Absent Tissue Surrounding Wound: Intact Wound General Appearance: Reddened Wound Assessment #5: Wound Number: 5 Wound Present on Admission: Yes New Wound: No Status Change of Wound: No Wound Location Body Site Modif: right Wound Location Body Site: other - medial foot scattered deep reddend color with thick dry callus like skin Mike Test: Does not Mike Percent of Wound [place]/Red: 100 Wound Drainage Amount: None Wound Drainage Odor: None/Absent Tissue Surrounding Wound: Intact Wound General Appearance: Reddened Wound Assessment #6: Wound Number: 6 Wound Present on Admission: Yes New Wound: No Status Change of Wound: No Wound Location Body Site Modif: left Wound Location Body Site: heel Wound Type: pressure ulcer Mike Test: Does not Mike Pressure Ulcer Stage: Deep Tissue Injury Wound Thickness: Full Thickness Wound Length: 6.0 Wound Width: 6.0 Wound Depth: utd Percent of Wound Purple/Maroon: 100 Other Colors Identified: deep red Wound Drainage Amount: None Wound Drainage Odor: None/Absent Tissue Surrounding Wound: Intact Wound General Appearance: Reddened - maroon Wound Assessment #7: Wound Number: 7 Wound Present on Admission: Yes New Wound: No Status Change of Wound: No Wound Location Body Site Modif: right Wound Location Body Site: heel Wound Type: pressure ulcer Mike Test: Does not Mike Pressure Ulcer Stage: Deep Tissue Injury Wound Thickness: Full Thickness Wound Length: 6.0 Wound Width: 6.0 Wound Depth: utd Percent of Wound Purple/Maroon: 100 Other Colors Identified: deep red Wound Drainage Amount: None Wound Drainage Odor: None/Absent Tissue Surrounding Wound: Intact Wound General Appearance: Reddened - maroon Wound Comment #1 Right ischial tuberosity- stage 3 with surrounding skin with deep tissue injury maroon in color #2 Left ischial tuberosity deep tissue injury #3 Mid sacral suspected deep tissue injury #5 right heel deep tissue injury #6 left heel deep tissue injury #7 left and right medial foot scattered redness with thick flaky callus like skin. Recommendation. -Local wound care per protocol -turn and reposition. -Keep clean and dry. -Optimize nutrition -Apply low air loss mattress. -Heel protectors. -Offload affected sites. -Avoid shear and friction -Assess and follow up with MD if any further change of condition to skin is noted. NGUYỄN AVILA Oct 24, 2017 16:05
[2017-10-24 20:00] VITALS: BP 148/79
[2017-10-24] MEDS ORDERED: Vitamin A&D Oint 2oz Tube TOPIC SCH (21:00)
[2017-10-25] VITALS: BP 146/73
--- NOTE | 2017-10-25 | General Progress Note ---
Assessment/Plan Assessment/Plan 1. Stage IV lung cancer, unknown subtype. Difficult to evaluate in regard to whether or not the patient will benefit from immunotherapy. --> In order to do an evaluation of whether benefits are noticed with immunotherapy, first the patient will need to obtain tissue diagnosis in addition to PD, PD-L, PD-L1 staining of the tissue; approximately 10 to 20% of the patients can benefit from immunotherapy if they have a good performance status, if they have a decent performance status and some can even have long-term remission. --> Again, it is unknown at this time what type of tumor he actually has. We need to do further diagnosis. 2. Anemia, likely secondary to chronic disease. --> Mild at this time. Does not need blood transfusion --> Closely monitor. 3. Leukocytosis, likely secondary to reactive process. --> wbc remains elevated. --> Continue steroids and antibiotic treatment. 4. Decreased hemoglobin and hematocrit, rule out gastrointestinal bleed. 5. Protein-calorie malnutrition, failure to thrive. Subjective Date patient seen: Oct 24, 2017 Allergies: Coded Allergies: ALCOHOL (Verified Allergy, Unknown, 10/22/17) Coffee (Verified Allergy, Unknown, 10/22/17) Subjective Pt on abx. Resting in bed. HR elevated. Poor Prognosis Objective Last 24 Hour Vital Signs Date Time Temp Pulse Resp B/P (MAP) Pulse Ox O2 Delivery O2 Flow Rate FiO2 10/24/17 23:09 111 24 93 Full Face 100 10/24/17 21:12 101 24 97 Full Face 100 10/24/17 20:00 100 10/24/17 20:00 98.1 106 22 148/79 97 Bi-pap 100 98.1 10/24/17 20:00 103 10/24/17 18:50 104 24 100 Full Face 100 10/24/17 17:10 109 48 100 Full Face 100 10/24/17 16:00 100 10/24/17 16:00 97.9 105 16 106/53 99 Bi-pap 100 97.9 10/24/17 16:00 109 10/24/17 15:45 101 32 97 Full Face 100 10/24/17 13:59 110 26 100 Full Face 100 10/24/17 12:00 111 10/24/17 12:00 98.1 111 40 101/40 95 Bi-pap 100 98.1 10/24/17 12:00 100 10/24/17 10:37 111 32 98 Full Face 100 10/24/17 10:00 100 10/24/17 09:25 107 29 95 Full Face 100 10/24/17 08:50 110/51 10/24/17 08:45 106 10/24/17 08:00 100 10/24/17 08:00 97.7 104 20 110/51 93 Bi-pap 100 97.7 10/24/17 07:25 104 24 94 Full Face 100 10/24/17 05:08 103 26 91 Full Face 100 10/24/17 04:00 107 10/24/17 04:00 97.0 100 17 114/70 92 Bi-pap 60 97.0 10/24/17 04:00 60 10/24/17 03:02 110 28 90 Full Face 100 10/24/17 02:26 118 10/24/17 01:21 102 24 92 Full Face 100 10/24/17 00:00 97.5 115 18 128/74 95 Bi-pap 60 97.5 10/24/17 00:00 60 Intake and Output 10/23/17 10/24/17 19:00 07:00 Intake Total 1205.000 ml 388.2 ml Output Total 2000 ml 700 ml Balance -795.000 ml -311.8 ml IV Total 1205.000 ml 388.2 ml Output Urine Total 2000 ml 700 ml Laboratory Tests 10/24/17 05:00: White Blood Count 21.3H, Red Blood Count 4.12L, Hemoglobin 11.6L, Hematocrit 37.7L, Mean Corpuscular Volume 92, Mean Corpuscular Hemoglobin 28.0, Mean Corpuscular Hemoglobin Concent 30.6L, Red Cell Distribution Width 15.7H, Platelet Count 314, Mean Platelet Volume 7.3, Neutrophils (%) (Auto) , Lymphocytes (%) (Auto) , Monocytes (%) (Auto) , Eosinophils (%) (Auto) , Basophils (%) (Auto) , Differential Total Cells Counted 100, Neutrophils % ( Manual) 90H, Lymphocytes % (Manual) 1L, Monocytes % (Manual) 9, Eosinophils % ( Manual) 0, Basophils % (Manual) 0, Band Neutrophils 0, Platelet Estimate Adequate, Platelet Morphology Normal, Hypochromasia 1+, Anisocytosis 1+, Sodium Level 151H, Potassium Level 3.0L, Chloride Level 99, Carbon Dioxide Level > 45*H , Blood Urea Nitrogen 25H, Creatinine 1.0, Estimat Glomerular Filtration Rate , Glucose Level 120H, Calcium Level 9.2, Total Bilirubin 0.6, Aspartate Amino Transf (AST/SGOT) 32, Alanine Aminotransferase (ALT/SGPT) 31, Alkaline Phosphatase 72, Pro-B-Type Natriuretic Peptide 621H, Total Protein 6.6, Albumin 2.2L, Globulin 4.4, Albumin/Globulin Ratio 0.5L 10/24/17 08:07: Arterial Blood pH 7.429, Arterial Blood Partial Pressure CO2 88.1*H, Arterial Blood Partial Pressure O2 128.9H, Arterial Blood HCO3 57.0H, Arterial Blood Oxygen Saturation 98.7H, Arterial Blood Base Excess 27.6, Kyler Test Positive 10/24/17 10:10: Vancomycin Level Trough 12.0 10/24/17 15:42: Arterial Blood pH 7.203*L, Arterial Blood Partial Pressure CO2 152.9*H, Arterial Blood Partial Pressure O2 95.7, Arterial Blood HCO3 58.8H, Arterial Blood Oxygen Saturation 96.6, Arterial Blood Base Excess 24.7, Kyler Test Positive 10/24/17 19:00: Arterial Blood pH 7.395, Arterial Blood Partial Pressure CO2 94.8*H, Arterial Blood Partial Pressure O2 79.6, Arterial Blood HCO3 56.9H, Arterial Blood Oxygen Saturation 96.1, Arterial Blood Base Excess 27.2, Kyler Test Positive Height (Feet): 5 Height (Inches): 8.00 Weight (Pounds): 164 Hernandez Gibbs Oct 25, 2017 00:00
[2017-10-25] MEDS ORDERED: LORazepam Inj 2mg/ml 1ml IV PRN (02:45)
[2017-10-25] MEDS ORDERED: Morphine Sulfate 4mg/ml Inj IM PRN (02:45)
[2017-10-25] MEDS ORDERED: Morphine Sulfate 4mg/ml Inj IVP PRN (02:52)
[2017-10-25 04:00] VITALS: BP 129/66
[2017-10-25 05:19] LABS: HEMATOCRIT 31.2 % (42.0-52.0); HEMOGLOBIN 9.5 G/DL (14.2-18.0); MEAN CORPUSCULAR VOLUME 91 FL (80-99); PLATELET COUNT 276 K/UL (150-450); RED BLOOD COUNT 3.41 M/UL (4.70-6.10); RED CELL DISTRIBUTION WIDTH 15.3 % (11.6-14.8)
[2017-10-25 05:40] LABS: WHITE BLOOD COUNT 22.8 K/UL (4.8-10.8)
[2017-10-25 05:44] LABS: ALANINE AMINOTRANSFERASE 46 U/L (12-78); ALBUMIN 1.7 G/DL (3.4-5.0); ALBUMIN/GLOBULIN RATIO 0.5 (1.0-2.7); ALKALINE PHOSPHATASE 69 U/L (46-116); ANION GAP 6 mmol/L (5-15); ASPARTATE AMINO TRANSFERASE 58 U/L (15-37); BILIRUBIN,TOTAL 1.2 MG/DL (0.2-1.0); BLOOD UREA NITROGEN 42 mg/dL (7-18); CALCIUM 8.9 MG/DL (8.5-10.1); CHLORIDE 106 MMOL/L (98-107); CREATININE 1.6 MG/DL (0.55-1.30); POTASSIUM 3.8 MMOL/L (3.5-5.1); SODIUM 154 MMOL/L (136-145)
[2017-10-25 05:46] LABS: CARBON DIOXIDE 40 MMOL/L (21-32)
[2017-10-25 05:48] LABS: BILIRUBIN,DIRECT 0.3 MG/DL (0.0-0.3)
[2017-10-25] MEDS: NovoLOG Insulin Flexpen SUBQ SCH (05:51)
--- NOTE | 2017-10-25 17:10 | Discharge Summary ---
Discharge Summary Hospital Course Date of Admission Oct 22, 2017 at 20:39 Date of Discharge Oct 25, 2017 at 05:12 Admitting Diagnosis RESP DISTRESS HPI Fito Goodson is a 77 year old male who was admitted on Oct 22, 2017 at 20:39 for Respiratory Distress Hospital Course [id number] Discharge Discharge Disposition Patient Discharge Diagnoses: Martine Levy NP Oct 25, 2017 17:10
--- NOTE | 2017-10-26 04:30 | Discharge Summary 2 SIG ---
DATE OF ADMISSION: 10/22/2017 DATE OF DISCHARGE: 10/25/2017 BRIEF SUMMARY: The patient is an unfortunate 77-year-old male with history of stage IV lung cancer, who is DNR and DNI, who was residing in a alf, presented to ED complaining of shortness of breath for the past two days. He also had edema on bilateral extremities and hands. Per EMS, the patient was noted to be hypoxic on nasal cannula. Saturation was 85%. He was placed on nonrebreather mask, went up to 95%. On evaluation at ED, the patient was placed on BiPAP. The patient's EKG was in normal sinus rhythm with no acute changes. Chest x-ray showed bilateral interstitial infiltrates. Blood work showed elevated WBC of 19, hemoglobin was 12, and hematocrit 39. Potassium was 2.4. He was admitted to [facility] for acute respiratory failure due to healthcare-associated pneumonia and lung CA. He was given respiratory treatment and was given IV antibiotics with trial of IV steroids. He was seen by Infectious Diseases specialist. The patient was given vancomycin and cefepime. He was also followed by oncologist. The patient had stage IV lung CA of unknown subtype. The patient also had protein-calorie malnutrition with failure to thrive. He had poor prognosis. Influenza A and B were negative. He came in with multiple deep tissue injury and a stage III pressure ulcer on the right ischial tuberosity. He was given local wound care. The patient went into bradycardia and eventually on asystole. The patient DNR/DNI. He eventually . FINAL DIAGNOSES: 1. Acute respiratory failure. 2. Lung cancer. 3. Healthcare-associated pneumonia. 4. Pancoast syndrome. 5. Possible postobstructive pneumonia. 6. Sepsis. 7. Rule out bacteremia. 8. Do Not Resuscitate/Do Not Intubate. 9. Atrial fibrillation. 10. Hyperlipidemia. 11. Hypertension. 12. Diabetes. 13. History of chronic obstructive pulmonary disease. 14. Protein-calorie malnutrition with failure to thrive. 15. Anemia, likely secondary to chronic disease. Varun Odell M.D. I have been assigned to dictate discharge summary on this account and I was not involved in the patient's management. Martine Levy N.P. DR: Hadley JOB#: [id number] CC:
--- NOTE | 2017-10-26 10:28 | Diagnostic Imaging Report ---
APPROVED REPORT CPT Code: 90669 Present Symptoms Comments: R/O DVT BILATERAL: Imaging reveals a patent deep venous system bilaterally. There is no evidence of thrombus within the femoral, popliteal or tibial segments. The greater saphenous veins are also within normal limits. Doppler indicates normal spontaneous flow within these segments.
== END 2017-10-25 05:12 | disposition expired | DRG 720 ==
LOC: EDBD 18:14 → EMR 20:27 → 2W 20:39 → EDBEDREQ 21:38 → 2W 23:29
PROC: 5A09457 Assistance with Respiratory Ventilation, 24-96 Consecutive Hours, Continuous Positive Airway Pressure (ICD-10-PCS; principal; 2017-10-22)
DX: A41.9 Sepsis, unspecified organism (principal); J96.01 Acute respiratory failure with hypoxia; J18.9 Pneumonia, unspecified organism; E46 Unspecified protein-calorie malnutrition; L89.213 Pressure ulcer of right hip, stage 3; C34.10 Malignant neoplasm of upper lobe, unspecified bronchus or lung; I48.91 Unspecified atrial fibrillation; R00.1 Bradycardia, unspecified; D63.8 Anemia in other chronic diseases classified elsewhere; I10 Essential (primary) hypertension; D72.829 Elevated white blood cell count, unspecified; E11.9 Type 2 diabetes mellitus without complications; Z66 Do not resuscitate; R62.7 Adult failure to thrive; E78.5 Hyperlipidemia, unspecified; J44.9 Chronic obstructive pulmonary disease, unspecified; Z79.4 Long term (current) use of insulin; Z68.25 Body mass index [BMI] 25.0-25.9, adult
CPT/HCPCS: 36415; 36600; 71045; 80053; 80069; 80202; 81003; 82248; 82803; 82962; 83605; 83880; 84484; 85007; 85025; 86710; 87040; 87081; 93005; 93970; 94640; 94660; 94664; 99291; J1815; J7620; J8499